=== PATIENT | male | born 1970 | race African-American/Black ===

== ENCOUNTER 2025-08-04 12:35 | Emergency (ER) | payer MEDICAID ==
[~2025-08-04] VITALS: Ht 175.3 cm; Wt 77.0 kg
[2025-08-04 12:38] VITALS: TEMP 36.9; O2SAT 98
[2025-08-04 13:10] VITALS: TEMP 98.4
[2025-08-04 14:13] LABS: CREATININE 2.2 mg/dL (0.6-1.3); UREA NITROGEN BLOOD 60 mg/dL (9-23)
[2025-08-04 14:15] LABS: ASPARTATE AMINOTRANSFERASE 46 IU/L (<34); BILIRUBIN DIRECT 1.6 mg/dL (<=3.0); BILIRUBIN TOTAL 2.3 mg/dL (0.1-1.0)
[2025-08-04 14:16] LABS: PROTEIN TOTAL 7.6 g/dL (6.0-8.3)
[2025-08-04 14:18] VITALS: BP 121/92; PULSE 122; RESP 18; O2SAT 100
[2025-08-04 14:25] LABS: TROPONIN I HIGH SENSITIVITY 60 ng/L (3.0-53)
[2025-08-04 14:30] LABS: INR 1.6
[2025-08-04 14:40] LABS: BASOPHILS % 0.5 % (0.0-2.0); EOSINOPHILS % 0.6 % (0.0-5.0); HEMATOCRIT. 39.1 % (42.0-52.0); HEMOGLOBIN. 12.3 g/dL (14.0-18.0); LYMPHOCYTES % 17.5 % (20.0-50.0); MEAN PLATELET VOLUME 9.5 fl (7.4-10.4); MONOCYTES % 8.9 % (2.0-8.0); NEUTROPHILS % 72.5 % (40.0-76.0); PLATELET 278 x1000/uL (130-400); RED BLOOD CELL COUNT 4.30 mill/uL (4.7-6.1); RED CELL DISTRIBUTION WIDTH 21.6 % (11.6-14.6)
[2025-08-04] MEDS ORDERED: SODIUM CHLORIDE 0.9% 1,000 ML IV ONE (15:45)
== END 2025-08-04 15:15 | disposition left against medical advice (07) ==
LOC: ER 12:35 → CMPBEDREQ 08-06 10:54
DX: R56.9 Unspecified convulsions (principal); R79.89 Other specified abnormal findings of blood chemistry; E11.9 Type 2 diabetes mellitus without complications; I10 Essential (primary) hypertension; Z53.20 Procedure and treatment not carried out because of patient's decision for unspecified reasons; Z95.2 Presence of prosthetic heart valve
CPT/HCPCS: 80076; 80048; 80320; 85025; 85610; 84484; 36415; 71045; 93005; 99291; J7030; G0480